=== PATIENT | female | born 1990 | race Caucasian/White ===

== ENCOUNTER 2016-09-11 08:30 | Inpatient (IN) | payer OTHER ==
[~2016-09-11] VITALS: Ht 154.9 cm; Wt 72.7 kg
[2016-09-11] MEDS ORDERED: MISOPROSTOL 200 MCG TAB PR PRN ×2 (09:00→22:30)
[2016-09-11] MEDS ORDERED: BUTORPHANOL 2 MG INJ IV PRN (09:00)
[2016-09-11] MEDS ORDERED: OXYTOCIN 30 UNITS/LR 500 ML IV PRN ×2 (09:00→22:30)
[2016-09-11] MEDS ORDERED: OXYTOCIN 30 UNITS/LR 500 ML IV SCH ×3 (09:00→10:00)
[2016-09-11] MEDS ORDERED: METHYLERGONOVINE 0.2 MG INJ IM PRN ×2 (09:00→22:30)
[2016-09-11] MEDS ORDERED: LIDOCAINE 1% (MPF) 30 ML INJ INJ PRN (09:00)
[2016-09-11] MEDS ORDERED: IBUPROFEN 600 MG TAB PO PRN (09:00)
[2016-09-11] MEDS ORDERED: CARBOPROST 250 MCG INJ IM PRN ×2 (09:00→22:30)
[2016-09-11 09:02] VITALS: Ht 154.9 cm; Wt 72.7 kg
[2016-09-11 09:04] VITALS: BP 118/67; PULSE 86; RESP 20
[2016-09-11] MEDS: LACTATED RINGER'S 1,000 ML IV SCH ×3 (09:28→19:01)
[2016-09-11] MEDS ORDERED: AMPICILLIN 2 GM/NS (PMX) 100 ML ONE (09:59)
[2016-09-11] MEDS ORDERED: AMPICILLIN 2 GM/NS (PMX) 100 ML IV ONE (10:00)
[2016-09-11 10:11] LABS: BASOPHILS % 0.3 % (0.0-2.0); EOSINOPHILS # 0.2 10^3/ul (0.0-0.5); EOSINOPHILS % 1.5 % (0.0-7.0); HEMATOCRIT 38.7 % (37.0-47.0); HEMOGLOBIN 13.1 g/dl (12.0-16.0); LYMPHOCYTES % 19.3 % (15.0-51.0); MEAN CORPUSCULAR HEMOGLOBIN 29.8 pg (29.0-33.0); MEAN CORPUSCULAR HGB CONC 33.9 g/dl (32.0-37.0); MEAN CORPUSCULAR VOLUME 87.9 fl (82.0-101.0); MEAN PLATELET VOLUME 8.9 fl (7.4-10.4); MONOCYTE # 0.8 10^3/ul (0.3-0.9); MONOCYTES % 8.1 % (0.0-11.0); NEUTROPHIL # 7.2 10^3/ul (1.6-7.5); NEUTROPHILS % 70.8 % (39.0-77.0); PLATELET COUNT 198 10^3/UL (140-440); UNCORRECTED WBC 10.2 10^3/ul (4.8-10.8); WHITE BLOOD COUNT 10.2 10^3/ul (4.8-10.8)
[2016-09-11 10:14] LABS: CONDITION 1
[2016-09-11 10:17] LABS: INR 0.95; PROTIME 12.7 Sec (12.2-14.2)
[2016-09-11 10:18] LABS: PARTIAL THROMBOPLASTIN TIME 27.5 Sec (25.0-35.0)
[2016-09-11] MEDS ORDERED: LACTATED RINGER'S 1,000 ML IV PRN (12:00)
--- NOTE | 2016-09-11 12:23 | RADRPT ---
PROCEDURE: US OB. CLINICAL INDICATION: Size and dates TECHNIQUE: Multiple sonographic images of the pelvis and gravid uterus were obtained. The images were reviewed on a PACS workstation. COMPARISON: No prior studies are available for comparison. FINDINGS: There is a single viable intrauterine gestation. Cardiac activity is present with 130 beats per min bell. There is a vertex presentation. The placenta is anterior. There is no evidence for an abruption or placenta previa. Measurements were made in order to determine age. The results are as follows: BPD =9.3 cm HC =33.3 cm AC =35.8 cm FL =7.2 cm Estimated gestational age of approximately 38 weeks and 1 day based on ultrasound measurements. Clinical age: 40 weeks and 0 days. The estimated date of delivery is 09/24/16, based on ultrasound measurements. The EFW = 3574 g, 46.1%, based on LMP age. RPTAT: AA IMPRESSION: Single viable intrauterine gestation of approximately 38 weeks and 1 day based on ultrasound measur ements. Smaller than clinical age by 2 weeks. .Cory Granados MD, MD Date Time Electronically viewed and signed by .Cory Granados MD, on 09/11/2016 12:23 .S/
[2016-09-11] MEDS ORDERED: FENTAnyl 2MCG/ML-ROPIV 0.2% 100 ML ONE (12:50)
[2016-09-11] MEDS: AMPICILLIN 1 GM/NS (PMX) 50 ML IV SCH ×2 (13:50→17:27)
[2016-09-11] MEDS ORDERED: NALOXONE (0.4 MG/ML) INJ IV PRN (16:30)
[2016-09-11] MEDS ORDERED: FENTAnyl 2MCG/ML-ROPIV 0.2% 100 ML BAG EPI SCH (16:30)
[2016-09-11] MEDS ORDERED: ACETAMINOPHEN 325 MG TAB PO PRN ×2 (22:30)
[2016-09-11] MEDS ORDERED: BENZOCAINE 20% 56 ML SPRAY TOP PRN (22:30)
[2016-09-11] MEDS ORDERED: DIBUCAINE 1% 30 GM OINT PR PRN (22:30)
[2016-09-11] MEDS ORDERED: LANOLIN 7 GM TUBE TOP PRN (22:30)
[2016-09-11] MEDS ORDERED: ONDANSETRON 4 MG INJ IV PRN (22:30)
[2016-09-11] MEDS ORDERED: DIPHENHYDRAMINE 25 MG CAP PO PRN (22:30)
[2016-09-11] MEDS ORDERED: ACETAMINOPHEN/CODEINE #3 TAB PO PRN ×2 (22:30)
--- NOTE | 2016-09-11 22:33 | HP ---
Date/Time of Note Date/Time of Note DATE: 09/11/16 TIME: 22:24 OB - History Hx of Present Last Menstrual Period: December 06, 2015 Estimated Due Date: Sep 11, 2016 : 3 Para: 2 Spontaneous : 0 Care: Good Care Ultrasounds: Normal mid trimester US Obstetrical Complications: None Medical Complications: None Past Family/Social History * Past Medical, Surgical, Family and Obstetric Histories reviewed from chart. Blood Type: A+ Rubella: immune RPR/VDRL: Negative GBS Status: Positive HBsAG: Negative OB Admission Exam Vital Signs Vital Signs Vital Signs Date Time Temp Pulse Resp B/P Pulse Ox O2 Delivery O2 Flow Rate FiO2 09/11/16 09:04 97.9 86 20 118/67 99 Room Air Physical Exam HEENT: WNL Heart: Rhythm Normal Lungs: Clear, Equal Abdomen: WNL Extremities: Normal Reflexes: Normal Cervical Dilatation: 2cm Effacement: 75% Station: Ballotable Membranes: Intact Heart Rate: 130's Accelerations: Accelerations Present Varibility: Moderate Contractions on Admission: 6-10 Minutes Apart Last 72 hours Lab Results CBC & BMP 09/11/16 09:25 OB Assessment/Plan Reason for admission: induction of labor Induction Method: per Pitocin Protocol MORRO ALMARAZ MD Sep 11, 2016 22:33
[2016-09-11] MEDS: OXYTOCIN 30 UNITS/LR 500 ML IV SCH (22:36)
--- NOTE | 2016-09-11 22:37 | LDN ---
Date/Time of Note Date/Time of Note DATE: 09/11/16 TIME: 22:33 Delivery Summary vacuum assisted delivery due to maternal fatigue baby boy 9 midline episiotomy repair under epidural no complications Assisted Vaginal Delivery: Vacuum Placenta Delivered: Spontaneously Meconium: none Perineum intact?: No Anesthesia type: Epidural Estimated blood loss: 200 Sponge & Needle done & correct: Yes All needle counts correct: Yes Any foreign bodies felt in the: No Problems: Infant Delivery Information Sex Infant Sex: male Apgars 1 Minute: 8 5 Minute: 9 Suctioning Nose & mouth suctioned at chung: Yes Umbilical Cord Umbilical cord with: 3 Vessels Cord presentations: no nuchal cord Cord Blood was obtained: Yes Mother & Baby Disposition Disposition Mom & Baby to Maternity; Good: Yes MORRO ALMARAZ MD Sep 11, 2016 22:37
[2016-09-12] MEDS: IBUPROFEN 800 MG TAB PO SCH ×5 (00:30→23:30)
[2016-09-12 00:50] VITALS: BP 104/61; PULSE 89; RESP 19
[2016-09-12 01:25] VITALS: BP 108/60; PULSE 78; RESP 19
[2016-09-12] MEDS: OXYTOCIN 30 UNITS/LR 500 ML IV SCH (02:12)
[2016-09-12 04:00] VITALS: BP 105/65; PULSE 86; RESP 19
[2016-09-12 08:30] VITALS: BP 106/55; PULSE 67; RESP 18
[2016-09-12 09:21] LABS: BASOPHILS % 0.3 % (0.0-2.0); EOSINOPHILS # 0.1 10^3/ul (0.0-0.5); EOSINOPHILS % 0.7 % (0.0-7.0); HEMOGLOBIN 11.8 g/dl (12.0-16.0); LYMPHOCYTES # 2.2 10^3/ul (0.8-2.9); LYMPHOCYTES % 15.2 % (15.0-51.0); MEAN CORPUSCULAR HEMOGLOBIN 30.5 pg (29.0-33.0); MEAN CORPUSCULAR HGB CONC 34.6 g/dl (32.0-37.0); MEAN CORPUSCULAR VOLUME 88.1 fl (82.0-101.0); MONOCYTE # 1.1 10^3/ul (0.3-0.9); MONOCYTES % 7.5 % (0.0-11.0); NEUTROPHIL # 10.9 10^3/ul (1.6-7.5); NEUTROPHILS % 76.3 % (39.0-77.0); PLATELET COUNT 174 10^3/UL (140-440); RED BLOOD COUNT 3.86 10^6/ul (4.20-5.40); RED CELL DISTRIBUTION WIDTH 13.9 % (11.5-14.5); UNCORRECTED WBC 14.2 10^3/ul (4.8-10.8); WHITE BLOOD COUNT 14.2 10^3/ul (4.8-10.8)
[2016-09-12 09:23] LABS: CONDITION 1
[2016-09-12] MEDS: SENNA/DOCUSATE NA (8.6MG/50MG) TAB PO SCH ×2 (09:37→21:08)
[2016-09-12] MEDS ORDERED: INFLUENZA VIRUS VACCINE 0.5 ML SYG IM* ONE (11:30)
--- NOTE | 2016-09-12 11:31 | PN ---
Date/Time of Note Date/Time of Note DATE: 09/12/16 TIME: 11:29 Assessment/Plan Lines/Catheters IV Catheter Type (from Nrs): Peripheral IV Subjective 24 Hr Interval Summary day 1 post vaginal delivery no complaints uterus contracted, lochia normal breast feeding Constitutional: BM, ambulates, flatus, improved, no complaints, urine output Detailed Summary Eyes: no complaints ENT: no complaints Respiratory: no complaints Cardiovascular: no complaints Gastrointestinal: no complaints Genitourinary: no complaints Musculoskeletal: no complaints Skin: no complaints Neurologic: no complaints Endocrine: no complaints Lymphatic: no complaints Psychological: nl mood/affect, no complaints Immunologic: no complaints Exam/Review of Systems Vital Signs Vitals Vital Signs Date Time Temp Pulse Resp B/P Pulse Ox O2 Delivery O2 Flow Rate FiO2 09/12/16 08:30 97.9 67 18 106/55 Room Air 09/11/16 09:04 99 Intake and Output 09/11/16 09/11/16 09/12/16 15:00 23:00 07:00 Intake Total 1665 ml 2206 ml 1000 ml Output Total 200 ml 800 ml 900 ml Balance 1465 ml 1406 ml 100 ml Exam Constitutional: alert, oriented, well developed Psych: nl mood/affect, no complaints Head: atraumatic, normocephalic Eyes: EOMI, nl conjunctiva, nl lids, nl sclera ENMT: mucosa pink and moist, nl external ears & nose, nl lips & teeth, nl nasal mucosa & septum Neck: non-tender, supple Respiratory: clear to auscultation, normal air movement Cardiovascular: nl pulses, regular rate and rhythm Gastrointestinal: nl liver, spleen, non-tender, soft Musculoskeletal: nl extremities to inspection, nl gait and stance Extremities: normal pulses Neurological: [employer] II-XII intact, nl mental status, nl speech, nl strength Skin: nl turgor, rash or lesions Lymph: nl lymph nodes Results Result Diagram: 09/12/16 0750 MORRO ALMARAZ MD Sep 12, 2016 11:31
[2016-09-12 16:00] VITALS: BP 109/54; PULSE 63; RESP 18
[2016-09-12] MEDS ORDERED: WITCH HAZEL/GLYCERIN PAD PR PRN (18:30)
[2016-09-12 20:40] VITALS: BP 109/61; PULSE 52; RESP 18
[2016-09-13 04:20] VITALS: BP 97/52; PULSE 52; RESP 18
[2016-09-13] MEDS: IBUPROFEN 800 MG TAB PO SCH (06:12)
[2016-09-13 08:30] VITALS: BP 105/54; PULSE 64; RESP 18
[2016-09-13] MEDS ORDERED: DIPHTH/TET/ACEL PERTUSS (ADULT) 0.5 ML VIAL IM* ONE (09:00)
[2016-09-13] MEDS ORDERED: VARICELLA VACCINE LIVE/PF 1,350 UNIT/0.5 ML ML SC* ONE (09:00)
--- NOTE | 2016-09-13 09:17 | PD.PPDC ---
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
--- NOTE | 2016-09-13 09:19 | DS ---
Date/Time of Note Date/Time of Note DATE: 09/13/16 TIME: 09:17 Obstetrical Discharge Record Final Diagnosis Final Diagnosis: Term delivered Vaginal Delivery Obstetrical Delivery: Vacuum Extraction Complications Augmentation: Yes Condition on Discharge Physical Assessment Voiding: Yes Bowel Movement: Yes Breast: Soft, non-tender, Filling Fundus: Firm Calf Tenderness: No Patient Condition: Good MORRO ALMARAZ MD Sep 13, 2016 09:19
[2016-09-13] MEDS: SENNA/DOCUSATE NA (8.6MG/50MG) TAB PO SCH (09:40)
== END 2016-09-13 13:43 | disposition home or self-care (01) | DRG 775 ==
LOC: L-D 08:38 → PP1 23:40
PROVIDERS: ADMIT Obstetrics & Gynecology; ATTEND Obstetrics & Gynecology
PROC: 0W8NXZZ Division of Female Perineum, External Approach (ICD-10-PCS; 2016-09-11)
PROC: 3E033VJ Introduction of Other Hormone into Peripheral Vein, Percutaneous Approach (ICD-10-PCS; 2016-09-11)
PROC: 10D07Z6 Extraction of Products of Conception, Vacuum, Via Natural or Artificial Opening (ICD-10-PCS; principal; 2016-09-11 08:30)
PROC: 3E0234Z Introduction of Serum, Toxoid and Vaccine into Muscle, Percutaneous Approach (ICD-10-PCS; 2016-09-12)
PROC: 3E0234Z Introduction of Serum, Toxoid and Vaccine into Muscle, Percutaneous Approach (ICD-10-PCS; 2016-09-13)
DX: O75.81 Maternal exhaustion complicating labor and delivery (principal); Z23 Encounter for immunization; Z3A.40 40 weeks gestation of pregnancy; Z37.0 Single live birth
CPT/HCPCS: 62319; 76815; 85025; 85610; 85730; 86592; 86900; 86901; 87340; 90686; 90715; 90716; 99464; J0290; J2590; J3010; J7120